=== PATIENT | male | born 1935 | race Caucasian/White ===

== ENCOUNTER → 2020-02-16 | Outpatient (CLI) | payer OTHER ==
[~2020-02-16] MED LIST: AEC81 PO; ATOR10 PO; CALC0.253 PO; CLOP75TA14 PO; FURO20TA4 PO; GLIP10TA9 PO; INSU100V SQ; INSU3INS3 SQ; LEVO75TA10 PO; LOSA100T58; MULT1CAP32 PO
== END | disposition home or self-care (01) ==
LOC: SHCH 14:15
PROVIDERS: ATTEND Internal Medicine Cardiovascular Disease
DX: I48.19 Other persistent atrial fibrillation (principal)
CPT/HCPCS: 93306

== ENCOUNTER 2020-05-03 06:49 | Inpatient (IN) | payer OTHER ==
[2020-05-01 12:01] LABS: BASOPHILS % (AUTO) 0.5 % (0.0-5.0); EOSINOPHILS % (AUTO) 0.9 % (0.0-8.0); HEMATOCRIT 39.1 % (42-54); LYMPHOCYTES % (AUTO) 7.6 % (21.0-51.0); MEAN CORPUSCULAR HGB CONC 33.2 g/dL (32.0-36.0); MEAN CORPUSCULAR VOLUME 96.3 fL (79-99); MONOCYTES % (AUTO) 5.7 % (3.0-13.0); NEUTROPHILS % (AUTO) 84.5 % (40.0-77.0); PLATELET COUNT (AUTO) 280 K/uL (130-400); RED BLOOD CELL COUNT(AUTO) 4.06 MIL/uL (4.50-6.20); RED CELL DISTRIBUTION WIDTH 15.9 % (11.0-15.5); WHITE BLOOD COUNT (AUTO) 13.1 K/uL (4.8-10.8)
[2020-05-01 12:15] LABS: CREATININE 3.5 mg/dL (0.5-1.5); POTASSIUM 3.7 mmol/L (3.5-5.1)
[2020-05-01 12:24] LABS: INR 3.18 (0.85-1.15); PARTIAL THROMBOPLASTIN TIME 46.7 SEC (26.3-35.5); PROTHROMBIN TIME 32.8 SEC (9.6-11.6)
[2020-05-02 11:42] VITALS: BP 125/67
--- NOTE | 2020-05-02 13:00 | NUR ---
Rep informed rep Bruno for [employer] was made aware of scheduled procedure. Verbalized understanding.
--- NOTE | 2020-05-02 14:19 | NUR ---
Abnormal labs Informed Dr. Nguyen of elevated PT/PTT/INR. Stated for labs to repeated in AM. Communication sheet noted.
[~2020-05-03] VITALS: Ht 180.3 cm; Wt 115.8 kg
[~2020-05-03 06:49] MED LIST changes: -AEC81 PO; +AMIO200T6 PO; +AMLO-257 PO; -CLOP75TA14 PO; -GLIP10TA9 PO; +INSLAN SQ; +INSU100I15 SQ; -INSU100V SQ; -INSU3INS3 SQ; -LOSA100T58; -MULT1CAP32 PO; +POLY17PO4 PO; +TAMS-1 PO; +Vitamin D PO; +WARF4TAB8 PO
[2020-05-03 07:04] VITALS: BP 145/81
[2020-05-03] MEDS ORDERED: SODIUM CHLORIDE 0.9% 1000ML 1,000 ML IV ONE (07:33)
[2020-05-03 07:44] LABS: INR 1.54 (0.85-1.15); PROTHROMBIN TIME 16.4 SEC (9.6-11.6)
[2020-05-03] MEDS ORDERED: DEXTROSE 50%-WATER 50 ML DISP.SYRIN IV ONE (07:52)
[2020-05-03] MEDS ORDERED: DEXTROSE 50%-WATER 50 ML DISP.SYRIN IV SCH (08:15)
[2020-05-03] MEDS ORDERED: MIDAZOLAM HCL 1 MG/ML 2ML VIAL ONE (11:28)
[2020-05-03] MEDS ORDERED: MEPERIDINE-PF 25 MG/ML SYG ONE (11:28)
[2020-05-03] MEDS ORDERED: LIDOCAINE HCL 2% 20ML ONE (11:28)
[2020-05-03] MEDS ORDERED: POTASSIUM CHLORIDE 10MEQ/100ML 100 ML IV PRN (15:45)
[2020-05-03] MEDS ORDERED: LINEZOLID 600 MG/ISO-OSM 300 ML IV SCH ×2 (15:45→20:15)
[2020-05-03] MEDS ORDERED: LIDOCAINE HCL-MPF 1% 2ML VIAL IV PRN (15:45)
[2020-05-03] MEDS ORDERED: DOXYCYCLINE 100MG+NS 250ML 250 ML IV SCH (15:45)
[2020-05-03] MEDS ORDERED: POTASSIUM CHLORIDE 10% ELIXIR 20 MEQ/15 ML UDCUP PO PRN (15:45)
[2020-05-03] MEDS ORDERED: BUMETANIDE 0.25 MG/ML 10 ML VIAL IV SCH (15:45)
[2020-05-03] MEDS ORDERED: MAG HYDROX/AL HYDROX/SIMETH ES 30 ML SUSP UDCUP PO PRN (16:00)
[2020-05-03] MEDS ORDERED: ONDANSETRON HCL 4 MG/2 ML VIAL IV PRN (16:00)
[2020-05-03] MEDS ORDERED: ACETAMINOPHEN 325 MG TAB PO PRN (16:00)
[2020-05-03] MEDS ORDERED: GUAIFENESIN-DM 200/20 MG 10 ML PO PRN (16:00)
[2020-05-03] MEDS ORDERED: ACETAMINOPHEN-CODEINE 300/30MG TAB PO PRN ×2 (16:00)
[2020-05-03] MEDS ORDERED: BUMETANIDE 0.25 MG/ML 80 ML IV SCH (16:15)
--- NOTE | 2020-05-03 16:45 | NUR ---
PROCEDURE CANCELLED PER DR. LOMBARDO R/T ELEVATED WBC COUNT, AND BILATERAL CELLULITES TO LOWER EXTREMITIES. PT IS TO BE ADMITTED UNDER DR. VERAS-HOSPITAL[facility]. REPORT GIVEN TO NOVA CERVANTES AT 1700. PT TRANSFERRED VIA WHEELCHAIR WITH PERSONAL BELONGINGS AND CANE TO ROOM 407. SPOKE TO SPOUSE TO REPORT PT TRANSFER TO FOURTH FLOOR. PT STABLE NO DISTRESS.
[2020-05-03] MEDS: INSULIN LISPRO 100 UNIT/ML 3ML SQ SCH (17:00)
[2020-05-03 17:30] VITALS: BP 125/93
[2020-05-03] MEDS: FLUCONAZOLE 200 MG/NS 100 ML 100 ML IV SCH ×2 (18:44→19:35)
[2020-05-03] MEDS: LINEZOLID 600 MG/ISO-OSM 300 ML IV SCH (19:35)
[2020-05-03 19:38] VITALS: BP 120/73
[2020-05-03] MEDS: ENOXAPARIN SODIUM 120 MG/0.8ML SQ SCH (19:58)
--- NOTE | 2020-05-03 20:00 | NUR ---
MEDS SHIFT ASSESSMENT DONE, PLEASE REFER TO CHART. DUE MEDS ADMINISTERED, TOLERATED WELL. KEPT COMFORTABLE IN BED. CALL LIGHT WITHIN REACH. Addendum: 05/04/20 at 0147 by DOLLY MERLOS RN RN Amended: Links added.
[2020-05-03] MEDS: INSULIN GLARGINE 100 UNITS/ML 10 ML VIAL SQ SCH (20:02)
--- NOTE | 2020-05-03 20:32 | NUR ---
MD DR SHEPPARD CALLED AND NEW ORDERS GIVEN, PLEASE REFER TO CPOE.
[2020-05-03] MEDS: DOXYCYCLINE 100MG+NS 250ML 250 ML IV SCH (22:04)
[2020-05-03 23:03] VITALS: BP 121/84
--- NOTE | 2020-05-04 01:19 | NUR ---
PAIN PT CLAIMS OF HAVING PAINS WHEN MOVING. NOTED PT'S HR INCREASING TO 120'S AND 130'S WHEN HE GETS UP TO THE RESTROOM. MEDICATED WITH TYLENOL #3 1 TAB PO. KEPT COMFORTABLE IN BED. INSTRUCTED TO USE THE URINAL FOR NOW FOR MEASURING OF I AND O'S. CALL LIGHT WITHIN REACH. WILL RE-ASSESS PT.
[2020-05-04 03:06] VITALS: BP 130/69
[2020-05-04 03:51] LABS: APPEARANCE,URINE Clear (CLEAR); BILIRUBIN,URINE Negative (NEGATIVE); COLOR,URINE Yellow (YELLOW); GLUCOSE, URINE (UA) TRACE mg/dL (NEGATIVE); KETONES,URINE Negative (NEGATIVE); LEUKOCYTE ESTERASE ,URINE Negative (NEGATIVE); NITRATE,URINE Negative (NEGATIVE); OCCULT BLOOD,URINE Small (NEGATIVE); PH,URINE 5.5 (5.0-8.0); PROTEIN,URINE 300 mg/dL (NEGATIVE); UROBILINOGEN,URINE 0.2 mg/dL (0.2-1.0)
[2020-05-04 04:16] LABS: BACTERIA,URINE Few /HPF (None Seen); RBC,URINE None Seen /HPF (0-1); SQUAMOUS EPITHELIAL CELL,UR 0-2 /HPF (0-2)
[2020-05-04] MEDS: LINEZOLID 600 MG/ISO-OSM 300 ML IV SCH ×2 (04:51→18:56)
[2020-05-04 05:49] LABS: BASOPHILS % (AUTO) 0.6 % (0.0-5.0); EOSINOPHILS % (AUTO) 1.3 % (0.0-8.0); HEMATOCRIT 38.5 % (42-54); LYMPHOCYTES % (AUTO) 10.7 % (21.0-51.0); MEAN CORPUSCULAR HEMOGLOBIN 31.8 pg (27.0-33.0); MEAN CORPUSCULAR HGB CONC 33.8 g/dL (32.0-36.0); MEAN CORPUSCULAR VOLUME 94.1 fL (79-99); MONOCYTES % (AUTO) 8.4 % (3.0-13.0); NEUTROPHILS % (AUTO) 77.1 % (40.0-77.0); PLATELET COUNT (AUTO) 272 K/uL (130-400); RED BLOOD CELL COUNT(AUTO) 4.09 MIL/uL (4.50-6.20); RED CELL DISTRIBUTION WIDTH 15.7 % (11.0-15.5)
[2020-05-04 05:59] LABS: ALBUMIN 1.8 g/dL (3.5-5.0); BILIRUBIN,TOTAL 0.5 mg/dL (0.2-1.0); CREATININE 3.8 mg/dL (0.5-1.5); PHOSPHORUS 3.7 mg/dL (2.5-4.9); POTASSIUM 3.3 mmol/L (3.5-5.1); TOTAL PROTEIN, SERUM 5.5 g/dL (6.0-8.3); URIC ACID 8.8 mg/dL (2.6-7.2)
[2020-05-04] MEDS: LEVOTHYROXINE 75 MCG TABLET PO SCH (06:20)
[2020-05-04] MEDS: INSULIN LISPRO 100 UNIT/ML 3ML SQ SCH ×3 (06:27→18:56)
--- NOTE | 2020-05-04 06:30 | NUR ---
MEDS DUE MEDS ADMINISTERED, TOLERATED WELL. KEPT RESTED AND COMFORTABLE IN BED. FOR MORE CARE.
[2020-05-04] MEDS ORDERED: FLUCONAZOLE 200 MG/NS 100 ML 100 ML IV SCH (09:00)
[2020-05-04] MEDS: FLUCONAZOLE 200 MG/NS 100 ML 100 ML IV SCH ×3 (09:05→11:44)
[2020-05-04] MEDS: AMLODIPINE BESYLATE 5 MG TAB PO SCH (10:32)
[2020-05-04] MEDS: TAMSULOSIN HCL 0.4 MG CAP.ER.24H PO SCH (10:32)
[2020-05-04] MEDS: DOXYCYCLINE 100MG+NS 250ML 250 ML IV SCH ×2 (10:32→21:07)
[2020-05-04] MEDS: FAMOTIDINE 20MG TAB 20 MG TAB PO SCH (10:32)
[2020-05-04] MEDS: Vitamin B Complex/Vit C/Folic Acid PO SCH (10:32)
[2020-05-04 11:24] VITALS: BP 127/71
[2020-05-04] MEDS ORDERED: SODIUM CHLORIDE 0.9% 250 ML IV ONE (11:38)
[2020-05-04 16:08] VITALS: BP 126/66
--- NOTE | 2020-05-04 16:49 | NUR ---
DCP CM met with pt this morning, currently busy did not want to be disturbed, called spouse on facesheet, spoke to Matilda Jenkins [phone] discussed dc plans. As per spouse pt is independent prior to admission, lives at home with spouse. Denies any equipments/services. Previusly going to Dr Cain but spouse said MD suddenly retired and they have been [facility] follow up. Educated spouse on importance of establishing pcp for continuity of care, given local MD lists, spouse verbalized she will find another pcp for spouse and will also coordinate with [employer] insurance. Feels safe to go back home, spouse able to assist with transportation and needs as necessary. DC plan to home once stable. CM to continue to follow up. Addendum: 05/04/20 at 1654 by CRISTHIAN BEARD LVN CM Amended: Links added.
--- NOTE | 2020-05-04 16:50 | NUR ---
[facility] CONSULT Patient assessed by wound healing center team. See patient wound assessment. Assessment and recommendations discussed with primary nurse. Orders entered. Education provided. Addendum: 05/04/20 at 1650 by KYLIE NUNEZ RN RN/ Amended: Links added.
[2020-05-04 19:32] VITALS: BP 121/49
[2020-05-04] MEDS: ENOXAPARIN SODIUM 120 MG/0.8ML SQ SCH (21:08)
--- NOTE | 2020-05-04 21:10 | NUR ---
MEDS SHIFT ASSESSMENT DONE, PLEASE REFER TO CHART. DUE MEDS ADMINISTERED, TOLERATED WELL. CALL LIGHT WITHIN REACH. WILL MONITOR PT. Addendum: 05/05/20 at 0008 by DOLLY MERLOS RN RN Amended: Links added.
[2020-05-04] MEDS: INSULIN GLARGINE 100 UNITS/ML 10 ML VIAL SQ SCH (21:20)
[2020-05-05 00:03] VITALS: BP 119/73
[2020-05-05] MEDS: POTASSIUM CHLORIDE 20 MEQ ERTAB PO PRN ×3 (00:11→05:11)
--- NOTE | 2020-05-05 02:00 | NUR ---
ROUNDS PT RESTING WELL, FAIRLY ASLEEP. NO DISTRESS NOTED. KEPT RESTED AND COMFORTABLE. CALL LIGHT WITHIN REACH. WILL CONTINUE TO MONITOR.
[2020-05-05 03:22] VITALS: BP 123/59
[2020-05-05 04:34] LABS: BASOPHILS % (AUTO) 0.4 % (0.0-5.0); EOSINOPHILS % (AUTO) 1.9 % (0.0-8.0); HEMATOCRIT 35.5 % (42-54); LYMPHOCYTES % (AUTO) 12.5 % (21.0-51.0); MEAN CORPUSCULAR HEMOGLOBIN 31.2 pg (27.0-33.0); MEAN CORPUSCULAR HGB CONC 33.5 g/dL (32.0-36.0); MEAN CORPUSCULAR VOLUME 93.2 fL (79-99); MONOCYTES % (AUTO) 8.3 % (3.0-13.0); NEUTROPHILS % (AUTO) 75.3 % (40.0-77.0); PLATELET COUNT (AUTO) 264 K/uL (130-400); RED BLOOD CELL COUNT(AUTO) 3.81 MIL/uL (4.50-6.20); RED CELL DISTRIBUTION WIDTH 15.7 % (11.0-15.5); WHITE BLOOD COUNT (AUTO) 11.6 K/uL (4.8-10.8)
[2020-05-05 04:40] LABS: HEMOGLOBIN A1C 7.4 % (4.0-6.0)
[2020-05-05 04:49] LABS: CREATININE 3.6 mg/dL (0.5-1.5); PHOSPHORUS 3.6 mg/dL (2.5-4.9); POTASSIUM 3.4 mmol/L (3.5-5.1)
[2020-05-05] MEDS: LINEZOLID 600 MG/ISO-OSM 300 ML IV SCH (05:10)
[2020-05-05] MEDS: LEVOTHYROXINE 75 MCG TABLET PO SCH (05:11)
--- NOTE | 2020-05-05 05:20 | NUR ---
MEDS PT ALREADY AWAKE. PT'S POTASSIUM=3.4, STARTED ON PO MEDICATIONS. DUE MEDS ADMINISTERED AT THIS TIME WELL. PICTURES OF BLE REDNESS AND BLISTERS TAKEN, PLACED IN CHART. FOR MORE CARE.
[2020-05-05 08:07] VITALS: BP 132/73
[2020-05-05] MEDS ORDERED: HONEY 1 APPL/ML TUBE TP SCH (09:00)
[2020-05-05 10:04] LABS: INR 1.14 (0.85-1.15); PROTHROMBIN TIME 12.3 SEC (9.6-11.6)
[2020-05-05] MEDS ORDERED: LINE600T11 PO (10:22)
[2020-05-05] MEDS ORDERED: FLUC200T8 PO (10:22)
[2020-05-05] MEDS ORDERED: DOXY100T2 PO (10:22)
[2020-05-05] MEDS: Vitamin B Complex/Vit C/Folic Acid PO SCH (10:23)
[2020-05-05] MEDS: DOXYCYCLINE 100MG+NS 250ML 250 ML IV SCH (10:23)
[2020-05-05] MEDS: FAMOTIDINE 20MG TAB 20 MG TAB PO SCH (10:23)
[2020-05-05] MEDS: TAMSULOSIN HCL 0.4 MG CAP.ER.24H PO SCH (10:23)
[2020-05-05] MEDS: AMLODIPINE BESYLATE 5 MG TAB PO SCH (10:23)
[2020-05-05] MEDS: INSULIN LISPRO 100 UNIT/ML 3ML SQ SCH ×2 (10:34→12:25)
--- NOTE | 2020-05-05 11:38 | NUR ---
[id number] Patient signed IM Letter, I faxed IM Letter to [phone] and placed in chart under consent tab
[2020-05-05 12:03] VITALS: BP 131/67
--- NOTE | 2020-05-05 15:46 | NUR ---
I HAVE CALLED PT'S SEVERAL TIMES AND GIVEN HER D/C INSTRUCTIONS ON F/U AND OUTPATIENT PROCEDURES TO BE DONE W/ [facility] AND SHE STATED UNDERSTANDING OF ALL AND HAS ALREADY CALLED DR LOMBARDO'S OFFICE TO [facility] FOR PROCEDURES TO BE DONE AND WHEN TO START AND STOP TAKING COUMADIN WITH THE PLANNED PROCEDURE. SHE STATES HE DOES NOT HAVE A DESIGNATED PRIMARY PHYSICIAN TO F/U WITH BECAUSE HIS RETIRED AND SHE JUST TAKES [facility]; SHE STATED UNDERSTANDING TO APPLY THE MEDIHONEY TO LEGS DAILY AFTER CLEANSING THEM.
[2020-05-05 16:16] VITALS: BP 116/60
--- NOTE | 2020-05-08 12:41 | NUR ---
TRANSITIONAL CARE - POST-DISCHARGE NOTE Spoke to patient's spouse at number on file. As per Mrs Jenkins, the patient is doing well. She states he is taking his discharge medications along with his home medications as ordered. According to Mrs Jenkins, he will follow up with [facility] this week. Gregory was made aware she needs to call Dr Nguyen for follow up and will do so after phone call. Mrs Jenkins reports the patient does not report CP, SOB, N/V/D, fevers/chills.
== END 2020-05-05 17:00 | disposition home or self-care (01) | DRG 603 ==
LOC: DAH 06:49 → OBSVTOIN 06:50 → DAH 06:50 → DAHIP 06:50 → 4BH 17:20
PROVIDERS: ADMIT Hospitalist; ATTEND Hospitalist
DX: L03.115 Cellulitis of right lower limb (principal); I48.19 Other persistent atrial fibrillation; N17.9 Acute kidney failure, unspecified; I42.8 Other cardiomyopathies; L03.116 Cellulitis of left lower limb; N18.9 Chronic kidney disease, unspecified; E87.70 Fluid overload, unspecified; E87.6 Hypokalemia; I45.10 Unspecified right bundle-branch block; D64.9 Anemia, unspecified; E11.22 Type 2 diabetes mellitus with diabetic chronic kidney disease; S81.802A Unspecified open wound, left lower leg, initial encounter; E11.40 Type 2 diabetes mellitus with diabetic neuropathy, unspecified; E66.9 Obesity, unspecified; Z68.35 Body mass index [BMI] 35.0-35.9, adult; E78.5 Hyperlipidemia, unspecified; G47.30 Sleep apnea, unspecified; I12.9 Hypertensive chronic kidney disease with stage 1 through stage 4 chronic kidney disease, or unspecified chronic kidney disease; I25.10 Atherosclerotic heart disease of native coronary artery without angina pectoris; J44.9 Chronic obstructive pulmonary disease, unspecified; Z79.4 Long term (current) use of insulin; Z82.0 Family history of epilepsy and other diseases of the nervous system; Z82.3 Family history of stroke; Z82.49 Family history of ischemic heart disease and other diseases of the circulatory system; Z82.5 Family history of asthma and other chronic lower respiratory diseases; Z83.3 Family history of diabetes mellitus; Z95.0 Presence of cardiac pacemaker; Z53.9 Procedure and treatment not carried out, unspecified reason; X58.XXXA Exposure to other specified factors, initial encounter; Y93.89 Activity, other specified; Y92.89 Other specified places as the place of occurrence of the external cause; Y99.8 Other external cause status; Z88.6 Allergy status to analgesic agent; Z88.8 Allergy status to other drugs, medicaments and biological substances; Z83.6 Family history of other diseases of the respiratory system; Z90.49 Acquired absence of other specified parts of digestive tract; Z89.422 Acquired absence of other left toe(s); Z88.1 Allergy status to other antibiotic agents
CPT/HCPCS: 36415; 76770; 80048; 80053; 81001; 82948; 83036; 83735; 84100; 84145; 84550; 85025; 85610; 85730; 93005; 93925; 93970; 96374; A4606; G0378; J1450; J1644; J1650; J2020; J2175; J2250; J3490; J7030; J7050; J7070

== ENCOUNTER → 2020-05-11 | Outpatient (CLI) | payer OTHER ==
[~2020-05-11] MED LIST changes: -AMIO200T6 PO; +DOXY100T2 PO; +FLUC200T8 PO; +LIDOCAINE HCL 2% JELLY 5 ML TP ONE; +LINE600T11 PO
== END | disposition home or self-care (01) ==
LOC: WHH 14:00
PROVIDERS: ATTEND Family Medicine
DX: I87.333 Chronic venous hypertension (idiopathic) with ulcer and inflammation of bilateral lower extremity (principal); L97.222 Non-pressure chronic ulcer of left calf with fat layer exposed; L97.811 Non-pressure chronic ulcer of other part of right lower leg limited to breakdown of skin; E11.22 Type 2 diabetes mellitus with diabetic chronic kidney disease; I13.0 Hypertensive heart and chronic kidney disease with heart failure and stage 1 through stage 4 chronic kidney disease, or unspecified chronic kidney disease; I50.40 Unspecified combined systolic (congestive) and diastolic (congestive) heart failure; N18.4 Chronic kidney disease, stage 4 (severe); E11.40 Type 2 diabetes mellitus with diabetic neuropathy, unspecified; I25.10 Atherosclerotic heart disease of native coronary artery without angina pectoris; J44.9 Chronic obstructive pulmonary disease, unspecified; E78.5 Hyperlipidemia, unspecified; E66.9 Obesity, unspecified; G47.30 Sleep apnea, unspecified; I89.0 Lymphedema, not elsewhere classified; I48.91 Unspecified atrial fibrillation; Z68.35 Body mass index [BMI] 35.0-35.9, adult; Z95.0 Presence of cardiac pacemaker; Z79.4 Long term (current) use of insulin; Z89.422 Acquired absence of other left toe(s); Z90.49 Acquired absence of other specified parts of digestive tract
CPT/HCPCS: 11042; 82948; A6021; A6197

== ENCOUNTER → 2020-05-23 | Outpatient (CLI) | payer OTHER ==
[~2020-05-23] MED LIST changes: -LIDOCAINE HCL 2% JELLY 5 ML TP ONE
== END | disposition home or self-care (01) ==
LOC: WHH 10:00
PROVIDERS: ATTEND Family Medicine
DX: I87.333 Chronic venous hypertension (idiopathic) with ulcer and inflammation of bilateral lower extremity (principal); L97.222 Non-pressure chronic ulcer of left calf with fat layer exposed; L97.811 Non-pressure chronic ulcer of other part of right lower leg limited to breakdown of skin; E11.22 Type 2 diabetes mellitus with diabetic chronic kidney disease; I13.0 Hypertensive heart and chronic kidney disease with heart failure and stage 1 through stage 4 chronic kidney disease, or unspecified chronic kidney disease; I50.40 Unspecified combined systolic (congestive) and diastolic (congestive) heart failure; N18.4 Chronic kidney disease, stage 4 (severe); E11.40 Type 2 diabetes mellitus with diabetic neuropathy, unspecified; I25.10 Atherosclerotic heart disease of native coronary artery without angina pectoris; J44.9 Chronic obstructive pulmonary disease, unspecified; E78.5 Hyperlipidemia, unspecified; E66.9 Obesity, unspecified; G47.30 Sleep apnea, unspecified; I89.0 Lymphedema, not elsewhere classified; I48.91 Unspecified atrial fibrillation; Z68.35 Body mass index [BMI] 35.0-35.9, adult; Z95.0 Presence of cardiac pacemaker; Z79.4 Long term (current) use of insulin; Z89.422 Acquired absence of other left toe(s); Z90.49 Acquired absence of other specified parts of digestive tract
CPT/HCPCS: A6196; G0463

== ENCOUNTER → 2020-06-06 | Outpatient (CLI) | payer OTHER ==
[~2020-06-06] MED LIST changes: +LIDOCAINE HCL 2% JELLY 5 ML TP ONE
== END | disposition home or self-care (01) ==
LOC: WHH 10:30
PROVIDERS: ATTEND Family Medicine
DX: I87.333 Chronic venous hypertension (idiopathic) with ulcer and inflammation of bilateral lower extremity (principal); L97.222 Non-pressure chronic ulcer of left calf with fat layer exposed; L97.811 Non-pressure chronic ulcer of other part of right lower leg limited to breakdown of skin; L97.822 Non-pressure chronic ulcer of other part of left lower leg with fat layer exposed; E11.22 Type 2 diabetes mellitus with diabetic chronic kidney disease; I13.0 Hypertensive heart and chronic kidney disease with heart failure and stage 1 through stage 4 chronic kidney disease, or unspecified chronic kidney disease; I50.40 Unspecified combined systolic (congestive) and diastolic (congestive) heart failure; N18.4 Chronic kidney disease, stage 4 (severe); E11.40 Type 2 diabetes mellitus with diabetic neuropathy, unspecified; I25.10 Atherosclerotic heart disease of native coronary artery without angina pectoris; J44.9 Chronic obstructive pulmonary disease, unspecified; E78.5 Hyperlipidemia, unspecified; E66.9 Obesity, unspecified; G47.30 Sleep apnea, unspecified; I89.0 Lymphedema, not elsewhere classified; I48.91 Unspecified atrial fibrillation; Z68.35 Body mass index [BMI] 35.0-35.9, adult; Z95.0 Presence of cardiac pacemaker; Z79.4 Long term (current) use of insulin; Z89.422 Acquired absence of other left toe(s); Z90.49 Acquired absence of other specified parts of digestive tract
CPT/HCPCS: G0463

== ENCOUNTER → 2020-06-12 | Outpatient (CLI) | payer OTHER | END | disposition home or self-care (01) | LOC: WHH 09:45 | PROVIDERS: ATTEND Family Medicine | DX: I87.333 Chronic venous hypertension (idiopathic) with ulcer and inflammation of bilateral lower extremity (principal); L97.222 Non-pressure chronic ulcer of left calf with fat layer exposed; L97.811 Non-pressure chronic ulcer of other part of right lower leg limited to breakdown of skin; L97.822 Non-pressure chronic ulcer of other part of left lower leg with fat layer exposed; L97.111 Non-pressure chronic ulcer of right thigh limited to breakdown of skin; E11.22 Type 2 diabetes mellitus with diabetic chronic kidney disease; I13.0 Hypertensive heart and chronic kidney disease with heart failure and stage 1 through stage 4 chronic kidney disease, or unspecified chronic kidney disease; I50.40 Unspecified combined systolic (congestive) and diastolic (congestive) heart failure; N18.4 Chronic kidney disease, stage 4 (severe); E11.40 Type 2 diabetes mellitus with diabetic neuropathy, unspecified; I25.10 Atherosclerotic heart disease of native coronary artery without angina pectoris; J44.9 Chronic obstructive pulmonary disease, unspecified; E78.5 Hyperlipidemia, unspecified; E66.9 Obesity, unspecified; G47.30 Sleep apnea, unspecified; I89.0 Lymphedema, not elsewhere classified; I48.91 Unspecified atrial fibrillation; Z68.35 Body mass index [BMI] 35.0-35.9, adult; Z95.0 Presence of cardiac pacemaker; Z79.4 Long term (current) use of insulin; Z89.422 Acquired absence of other left toe(s); Z90.49 Acquired absence of other specified parts of digestive tract | CPT/HCPCS: 29580; A6197; A6456; G0463 ==

== ENCOUNTER → 2020-06-19 | Outpatient (CLI) | payer OTHER ==
[~2020-06-19] MED LIST changes: -LIDOCAINE HCL 2% JELLY 5 ML TP ONE
== END | disposition home or self-care (01) ==
LOC: WHH 10:30
PROVIDERS: ATTEND Family Medicine
DX: I87.333 Chronic venous hypertension (idiopathic) with ulcer and inflammation of bilateral lower extremity (principal); L97.222 Non-pressure chronic ulcer of left calf with fat layer exposed; L97.811 Non-pressure chronic ulcer of other part of right lower leg limited to breakdown of skin; L97.822 Non-pressure chronic ulcer of other part of left lower leg with fat layer exposed; L97.111 Non-pressure chronic ulcer of right thigh limited to breakdown of skin; E11.22 Type 2 diabetes mellitus with diabetic chronic kidney disease; I13.0 Hypertensive heart and chronic kidney disease with heart failure and stage 1 through stage 4 chronic kidney disease, or unspecified chronic kidney disease; I50.40 Unspecified combined systolic (congestive) and diastolic (congestive) heart failure; N18.4 Chronic kidney disease, stage 4 (severe); E11.40 Type 2 diabetes mellitus with diabetic neuropathy, unspecified; I25.10 Atherosclerotic heart disease of native coronary artery without angina pectoris; J44.9 Chronic obstructive pulmonary disease, unspecified; E78.5 Hyperlipidemia, unspecified; E66.9 Obesity, unspecified; G47.30 Sleep apnea, unspecified; I89.0 Lymphedema, not elsewhere classified; I48.91 Unspecified atrial fibrillation; Z68.35 Body mass index [BMI] 35.0-35.9, adult; Z95.0 Presence of cardiac pacemaker; Z79.4 Long term (current) use of insulin; Z89.422 Acquired absence of other left toe(s); Z90.49 Acquired absence of other specified parts of digestive tract
CPT/HCPCS: 29580; A6197; A6456; G0463

== ENCOUNTER → 2020-07-04 | Outpatient (CLI) | payer OTHER | END | disposition home or self-care (01) | LOC: WHH 09:20 | PROVIDERS: ATTEND Family Medicine | DX: I87.333 Chronic venous hypertension (idiopathic) with ulcer and inflammation of bilateral lower extremity (principal); L97.221 Non-pressure chronic ulcer of left calf limited to breakdown of skin; L97.211 Non-pressure chronic ulcer of right calf limited to breakdown of skin; L97.111 Non-pressure chronic ulcer of right thigh limited to breakdown of skin; E11.22 Type 2 diabetes mellitus with diabetic chronic kidney disease; I13.0 Hypertensive heart and chronic kidney disease with heart failure and stage 1 through stage 4 chronic kidney disease, or unspecified chronic kidney disease; I50.40 Unspecified combined systolic (congestive) and diastolic (congestive) heart failure; N18.4 Chronic kidney disease, stage 4 (severe); E11.40 Type 2 diabetes mellitus with diabetic neuropathy, unspecified; I25.10 Atherosclerotic heart disease of native coronary artery without angina pectoris; J44.9 Chronic obstructive pulmonary disease, unspecified; E78.5 Hyperlipidemia, unspecified; E66.9 Obesity, unspecified; G47.30 Sleep apnea, unspecified; I89.0 Lymphedema, not elsewhere classified; I48.91 Unspecified atrial fibrillation; Z68.35 Body mass index [BMI] 35.0-35.9, adult; Z95.0 Presence of cardiac pacemaker; Z79.4 Long term (current) use of insulin; Z89.422 Acquired absence of other left toe(s); Z90.49 Acquired absence of other specified parts of digestive tract | CPT/HCPCS: 29580; A6197; A6456; G0463 ==